=== PATIENT | female | born 1980 ===

== ENCOUNTER 2024-09-07 08:39 | Outpatient (REF) | payer OTHER, SELFPAY ==
--- NOTE | ~2024-09-07 | US_ITS ---
EXAMINATION: US ABDOMEN COMPLETE CLINICAL INFORMATION: Abdominal pain. Myelodysplastic syndrome. COMPARISON: None available. TECHNIQUE: Real-time imaging of the abdominal viscera. FINDINGS: PANCREAS: Normal. ABDOMINAL AORTA: The proximal, mid, and distal segments are normal in caliber. INFERIOR VENA CAVA: Visualized portions are normal. LIVER: Probable focal fatty infiltration within the right hepatic lobe. No discrete lesion. The liver is normal in size. The liver contour is normal. Parenchymal echogenicity is otherwise normal. There is no intrahepatic biliary duct dilatation seen. GALLBLADDER: Unremarkable. The gallbladder is physiologically distended without evidence of stones, sludge, polyps, wall thickening or pericholecystic fluid. COMMON BILE DUCT: Normal in caliber measuring 0.2 cm in diameter. RIGHT KIDNEY: Normal. No hydronephrosis. No renal calculi or focal parenchymal lesions. The kidney measures 9.9 cm in maximum dimension. LEFT KIDNEY: Normal. No hydronephrosis. No renal calculi or focal parenchymal lesions. The kidney measures 10 cm in maximum dimension. SPLEEN: Normal. The spleen measures 13 cm in maximum dimension. Patent splenic vein with normal Doppler detectable flow. FREE FLUID: None. US/US abdomen complete IMPRESSION: 1. Probable focal fatty infiltration within the right hepatic lobe. No additional hepatic parenchymal lesion or biliary ductal dilatation. 2. Otherwise unremarkable examination. Electronically signed by: Jose Juarez MD 09/07/2024 04:04 PM EDT
== END 2024-09-07 08:40 | disposition home or self-care (01) ==
LOC: HO.UMASIMG 08:39
PROVIDERS: Visit Provider Family Medicine
DX: D46.9 Myelodysplastic syndrome, unspecified (principal); R10.9 Unspecified abdominal pain
CPT/HCPCS: 76700